=== PATIENT | female | born 1955 ===

== ENCOUNTER → 2022-09-09 07:46 | Outpatient (REF) | payer MEDICARE, SELFPAY ==
--- NOTE | 2022-09-09 07:54 | CA_ITS ---
Transthoracic Echocardiogram Patient (Last, First, Middle): Yani Welsh, Gender: Female Date of : 1955 Age: 67 Procedure Date: 09/09/2022 Procedure Type: Transthoracic Echocardiogram Location: [facility] Height: 154.94 cm Weight: 62.6 kg BSA: 1.61 m2 Heart Rate: bpm BP: 110 / 72 mmHg Health Services Director: TO Referring MD: Trey Bauer MD Actor Understudy: Jim Wilson MD Symptoms: MCP, MITRAL REGURG Study Quality: Fair/Contrast ECG Rhythm: Sinus Conclusions: - 1. Mildly dilated left ventricle with severe LV systolic dysfunction with LVEF of 15-20% with impaired relaxation filling pattern 2. Mild mitral regurgitation due to annular dilatation 3. Normal RV systolic pressure 4. Small pericardial effusion, circumferential Findings Procedure Information Contrast agent, definity, is being given per protocol without apparent complications. Left Ventricle Mildly increased left ventricular cavity size. There is normal left ventricular wall thickness. The left ventricular systolic function is severely decreased. The visually estimated ejection fraction is between 15 20%. Spectral Doppler is indicative of an impaired relaxation filling pattern. E/E prime ratio is between 8 and 15 consistent with indeterminate filling pressures. There is no evidence of a thrombus in the left ventricle. Wall Motion Rest Echo Findings The entire apex, anterior wall, anteroseptal wall, and entire lateral wall are hypokinetic. The inferoseptal wall, the basal inferior, and mid inferior segments are akinetic. Right Ventricle Normal right ventricular cavity size and systolic function. Atria The left atrium is mildly dilated. Interatrial shunt cannot be excluded. The right atrium is normal in size. Aortic Valve Normal aortic valve structure and function. There is no aortic valve stenosis. There is no aortic valve regurgitation. Mitral Valve There is mild anterior and posterior mitral leaflet thickening. There is mild mitral valve regurgitation. There is no mitral valve stenosis. There is mild mitral annular dilatation. Pulmonic Valve The pulmonic valve is likely normal. There is mild pulmonic valve regurgitation. Tricuspid Valve Normal tricuspid valve structure. There is mild tricuspid valve regurgitation. The right ventricular systolic pressure is normal. The right ventricular systolic pressure is 25 mmHg. Normal right atrial pressure. There is no evidence of pulmonary hypertension. Great Vessels All visible segments of the aorta are normal in size. The pulmonary artery was not well visualized. The pulmonary artery is mildly dilated. Venous The inferior vena cava is normal in size and collapses greater than 50% with inspiration. Pericardium/Pleural There is a small circumferential pericardial effusion. Prior Study Comparison Changes noted compared to prior study dated: 02/05/2022. LV systolic function further reduced. findings were conveyed to Dr. Cordero Measurements 2D Linear Measurements IVSd: 0.72 0.6-0.9/0.6-1.0 cm LVIDd: 5.78 3.9-5.3/4.2-5.9 cm LVIDd Index: 3.59 2.4-3.2/2.2-3.1 cm/m2 LVIDs: 4.93 2.0-3.6 cm LVPWd: 0.59 0.7-1.1 cm LA Diam: 3.40 2.7-3.8/3.0-4.0 cm LAIDs Index: 2.11 1.5-2.3 cm/m2 LV Mass: 169.83 67-162/88-224 g LV Mass Index: 105.49 43-95/49-115 g/m2 LVOT Diam: 2.00 3.0+(-)1.3 cm 2D Systolic Function EF 4C: 20.70 >55% EF 2C: 16.90 >55% EF BiP: 20.00 >55% Mitral Valve MV Pk E: 0.49 MV PK A: 0.82 MV Decel Time: 123.00 E/A: 0.60 E'Lateral: 4.35 E'Medial: 3.48 E/E' Med: 14.20 E/E' Lat: 11.30 PHT: 36.00 MVA PHT: 6.11 Decel Liberty: 4.00 MR Vol - PW Dopp: 18.15 MR VTI: 1.65 MR ERO: 11.00 MR Alias Freedom: 0.32 MR RAD: 0.50 Aortic Valve AoV Pk Freedom: 1.13 AoV Mn Freedom: 0.81 AoV VTI: 0.25 AoV Pk Grad: 5.00 Aov Mn Grad: 3.00 YOSVANY Cont.VTI: 1.69 LVOT LVOT Pk Freedom: 0.71 LVOT Mn Freedom: 0.45 LVOT VTI: 0.13 LVOT Pk Grad: 2.00 LVOT Mn Grad: 1.00 LVOT Diam: 2.00 LVOT Area: 3.14 Diastolic Function MV Pk E: 0.49 MV Pk A: 0.82 E/A: 0.60 E'Medial: 3.48 E/E' Med: 14.20 E' Laterial: 4.35 E/E' Lat: 11.30 Right Ventricle TAPSE (mm): 21.10 TVS' Freedom: 10.20 Tricuspid Valve TR Pk Freedom: 2.35 TR Pk Grad: 22.00 RA Press: 3.00 RVSP: 25.00 Great Vessels Aorta Sinus of Valsalva: 3.44 2.0-3.[address] Ridge: 2.78 1.7-3.4 cm Ao Asc: 3.50 2.1-3.4 cm Updated in Other Vendor System with Status of Final Jim Wilson MD electronically signed on 09/09/2022 2:02:42 PM with status of Final
== END ==
LOC: HO.CARD 07:46
PROVIDERS: PCP Nurse Practitioner Adult Health; Visit Provider Internal Medicine Cardiovascular Disease
DX: I42.0 Dilated cardiomyopathy (principal); I34.0 Nonrheumatic mitral (valve) insufficiency
CPT/HCPCS: 93306; Q9957